=== PATIENT | female | born 1975 | race Caucasian/White ===

== ENCOUNTER 2024-10-30 13:12 | Inpatient (IN) | payer MEDICARE, OTHER ==
[~2024-10-30] VITALS: Ht 180.3 cm; Wt 59.0 kg
--- NOTE | 2024-10-30 14:37 | DVH ---
EXAM: XY L ANKLE 3 VIEW CLINICAL INDICATION: ankle pain TECHNIQUE: XY L ANKLE 3 VIEW Comparison: None FINDINGS/IMPRESSION: Chronic deformity involving the distal tibia and fibula. Chronic avulsion fracture involving the medi al malleolus. Postsurgical changes involving the calcaneus. No acute fracture.
--- NOTE | 2024-10-30 14:44 | DVH ---
EXAM: XY L HIP COMPLETE XRAY CLINICAL HISTORY: PAIN COMPARISON: None TECHNIQUE: XY L HIP COMPLETE XRAY Findings/Impression: 2 views of the left hip with frontal view of the pelvis. There is no definite evidence of an acute fracture, dislocation, blastic, or lytic lesions. Recommend CT for further evaluation if there is high clinical suspicion for an acute fracture. Spinal and pelvic fixation hardware. No joint effusion or superficial soft tissue abnormalities.
--- NOTE | 2024-10-30 15:25 | DVH ---
CLINICAL INFORMATION: 49 years old, Female; possible fracture status post fall injury. TECHNIQUE: Axial CT images of the left hip were obtained without IV contrast. Coronal and sagittal re formatted images were obtained, reviewed, and stored. All CT scans at this medical facility are pe rformed using dose modulation techniques as appropriate to a performed exam including the following: Automated exposure control was utilized; adjustment of the MA and/or KV according to patient size; an d use of iterative reconstruction technique. CTDIvol = 8.5, 0.41, 0.41, 0.07 mGy DLP = 296.29 mGy-cm COMPARISON: Radiographs dated 10/30/2024. FINDINGS: There is an acute appearing fracture of the left inferior pubic ramus without significant d isplacement. No other acute fracture visualized. There is adjacent soft tissue swelling. Moderate to severe arthritic changes are seen in the left hip with joint space narrowing, subchondral sclerosis, subchondral cystic change, and marginal osteophytes. Prominent left inguinal lymph node measures up to 2.0 x 1.3 cm, may be reactive. Moderate to marked fatty atrophy of the left gluteus minimus muscle . Moderately distended bladder incidentally noted and partially visualized. IMPRESSION: 1. Acute fracture of the left inferior pubic ramus. 2. Moderate to severe arthritic changes in the left hip. 3. Prominent left inguinal lymph node, may be reactive. Correlate with clinical findings. If the ly mph node is clinically suspicious, biopsy could be obtained.
--- NOTE | 2024-10-30 16:57 | ED.PDOC ---
Musculoskeletal HPI Comments Pleasant 49-year-old female with a history of chronic back pain and a history of chronic left elbow injuries that presents with a chief complaint of left-sided hip pain after a mechanical fall that occurred two weeks ago in [place] Reports she twisted her ankle in a hotel and landed on her left hip Able to ambulate with pain Pain rated 10/10 Denies LOC Chief Complaint: Lower Extremity Time Seen by MD: 14:18 Reviewed Notes: Nurses Notes, Medications, Allergies Information Source: Patient Mode of Arrival: Wheelchair Family History Family History: Reviewed,noncontributory to illness All Other Systems: Reviewed and Negative (Per HPI) Physical Exam General Appearance: No Apparent Distress, Normal HEENT: Normal ENT Inspection, Pharynx Normal, TMs Normal Neck: Full Range of Motion, Non-Tender, Normal, Normal Inspection Respiratory: Chest Non-Tender, Lungs Clear, No Accessory Muscle Use, No Respiratory Distress, Normal Breath Sounds Cardiovascular: No Murmur, No Gallop, Regular Rate/Rhythm Breast Exam: Deferred Gastrointestinal: No Organomegaly, Non Tender, No Pulsatile Mass, Normal Bowel Sounds, Soft Genitalia: Deferred Pelvic: Deferred Rectal: Deferred Extremities: No calf tenderness, Normal capillary refill, Normal inspection, Normal range of motion, Non-tender, No pedal edema Musculoskeletal : Location: Left Extremity Location: Ankle (Malleolus the swelling. Tender to palpation. Pain with flexion-extension. No ecchymosis no open wounds. Dorsalis pedis 2+. Distal neuro sensation intact), Hip (No gross abnormality of the hip. Localized tenderness to palpation to the lateral iliac crest. Pain with internal external rotation. No shortening of the leg) Apperance: Normal Neurologic: Alert, creative producer II-XII nml as Tested, No Motor Deficits, Normal Affect, Normal Mood, No Sensory Deficits Cerebellar Function: Normal Reflexes: Normal Skin: Dry, Normal Color, Warm Lymphatic: No Adenopathy Was a procedure done? Was a procedure done?: No Differential Diagnosis EXT Differential Diagnosis: Fracture, Sprain, Dislocation X-Ray, Labs, Meds, VS Vital Signs Date Time Temp Pulse Resp B/P (MAP) Pulse Ox O2 Delivery O2 Flow Rate FiO2 10/30/24 14:18 99.2 64 14 129/102 (592) 96 PATIENT: ESTELA FLYNNRUBENCCT: [id number]: [id number] : 1975 LOC: ER ROOM / BED: / AGE / SEX: 49 / F ADM STATUS: REG ER SERVICE 1453 ORDERING PHYSICIAN: SONU HESS NP PROCEDURE(s): LHPCT - CT L HIP WITH OUT CONTRAST REASON: possible fracture s/p fall ORDER NUMBER(s): [id number], ACCESSION NUMBER(s): [id number] CLINICAL INFORMATION: 49 years old, Female; possible fracture status post fall injury. TECHNIQUE: Axial CT images of the left hip were obtained without IV contrast. Coronal and sagittal reformatted images were obtained, reviewed, and stored. All CT scans at this medical facility are performed using dose modulation techniques as appropriate to a performed exam including the following: Automated exposure control was utilized; adjustment of the MA and/or KV according to patient size; and use of iterative reconstruction technique. CTDIvol = 8.5, 0.41, 0.41, 0.07 mGy DLP = 296.29 mGy-cm COMPARISON: Radiographs dated 10/30/2024. FINDINGS: There is an acute appearing fracture of the left inferior pubic ramus without significant displacement. No other acute fracture visualized. There is adjacent soft tissue swelling. Moderate to severe arthritic changes are seen in the left hip with joint space narrowing, subchondral sclerosis, subchondral cystic change, and marginal osteophytes. Prominent left inguinal lymph node measures up to 2.0 x 1.3 cm, may be reactive. Moderate to marked fatty atrophy of the left gluteus minimus muscle. Moderately distended bladder incidentally noted and partially visualized. IMPRESSION: 1. Acute fracture of the left inferior pubic ramus. 2. Moderate to severe arthritic changes in the left hip. 3. Prominent left inguinal lymph node, may be reactive. Correlate with clinical findings. If the lymph node is clinically suspicious, biopsy could be obtained. ATED BY: CRISTIANO APODACA DO DICTATED DATE/TIME: 10/30/24 1522 SIGNED BY: CRISTIANO APODACA DO SIGNED DATE/TIME: 10/30/24 152 CC: X-Ray, Labs, Meds, VS Comment Hip Fracture MDM VSS. Exam as above. Labs pending Imaging 1. Acute fracture of the left inferior pubic ramus. 2. Moderate to severe arthritic changes in the left hip. 3. Prominent left inguinal lymph node, may be reactive. Correlate with clinical findings. If the lymph node is clinically suspicious, biopsy could be obtained. Findings: Closed Hip Fracture without dislocation Consult: Orthopedic The patient's workup reveals that the patient needs further treatment and pain control for the above medical conditions. Patient verbalized understanding of the above and is awaiting further evaluation by the admitting service. Case discussed with medical editor of the day for admission and ED evaluation. Time of 1ST Reevaluation: 17:10 Reevaluation 1ST: Improved Patient Education/Counseling: Diagnosis, Treatment Family Education/Counseling: Diagnosis, Treatment Departure 1 Departure Time of Disposition: 17:11 Impression: Primary Impression: Fracture of left inferior pubic ramus Qualified Codes: S32.592A - Other specified fracture of left pubis, initial encounter for closed fracture Additional Impression: Left ankle pain Qualified Codes: M25.572 - Pain in left ankle and joints of left foot Disposition: 09 ADMITTED INPATIENT Condition: Fair Critical Care Note Critical Care Time?: No Stability Stability form required: No Heart Score Heart Score: Heart Score Response (Comments) Value History N/A 0 EKG N/A 0 Age N/A 0 Risk Factors N/A 0 Troponin N/A 0 Total 0 SONU HESS NP Oct 30, 2024 16:57
[2024-10-30] MEDS: SODIUM CHLORIDE 0.9% 1,000 ML IV ONE (17:47)
[2024-10-30] MEDS: HYDROcodone-ACET 10/325MG TAB PO ONE (17:56)
[2024-10-30 18:18] LABS: Basophils # (auto) 0 10 ^3/uL (0-0.2); Basophils % (auto) 0.3 % (0.0-2.0); Eosinophils # (auto) 0 10 ^3/uL (0-0.8); Eosinophils % (auto) 0.5 % (0.0-7.0); Hematocrit 44.9 % (36.0-46.0); Hemoglobin 15.1 g/dL (12.2-16.2); Lymphocytes # (auto) 1.9 10 ^3/uL (0.4-5.4); Lymphocytes % (auto) 32.4 % (10.0-50.0); Mean Corpuscular Hemoglobin 30.7 pg (28.0-32.0); Mean Corpuscular Hgb Conc. 33.5 g/dL (32.0-36.0); Mean Corpuscular Volume 91.5 fL (80.0-100.0); Monocytes # (auto) 0.2 10 ^3/uL (0-1.3); Neutrophils # (auto) 3.6 10 ^3/uL (1.6-8.6); Neutrophils % (auto) 62.8 % (37.0-80.0); Nucleated Red Blood Cells % 0.2 %; Platelet Count (auto) 173 10^3/uL (140-450); Red Blood Cells 4.91 10^6/uL (4.0-5.20); Red Cell Distribution Width 14.1 % (11.8-14.3); White Blood Cell 5.8 10^3/uL (4.4-10.8)
[2024-10-30 18:34] LABS: Alanine Aminotransferase 15 U/L (7-40); Anion Gap 6 (5-15); BUN/Creatinine Ratio 9.9 (10.0-20.0); Carbon Dioxide 29 mmol/L (20-31); Chloride 106 mmol/L (98-107); Glucose 86 mg/dL (74-106); Sodium 141 mmol/L (136-145)
[2024-10-30 18:35] LABS: Total Protein 7.5 g/dL (5.7-8.2)
[2024-10-30 18:46] LABS: Albumin 5.2 g/dL (3.2-4.8); Alkaline Phosphatase 172 U/L (46-116); Aspartate Aminotransferase 9 U/L (13-40); Bilirubin, Total 0.3 mg/dL (0.2-1.0); Blood Urea Nitrogen 7 mg/dL (9-23); Calcium 10.5 mg/dL (8.7-10.4)
[2024-10-30 22:25] VITALS: BP 118/87; PULSE 88; RESP 16; TEMP 98.3; O2SAT 99
[2024-10-30] MEDS: MORPHINE SULFATE INJ 2 MG/ml SYRG IM ONE (22:25)
[2024-10-30] MEDS: ONDANSETRON ODT 4 MG TAB PO ONE (22:25)
--- NOTE | 2024-10-30 22:52 | DVHHPRES ---
History of Present Illness Resident Creating Document: GERARD BRUSH RESIDENT History of Present Illness 49-year-old female with past medical history of lupus, chronic pain, endometriosis, right leg amputation, multiple orthopedic injuries after sustaining a fall from a 5 story building, who came in due to left leg pain s/p mechanical fall. Per patient, on 10/19/2024 while in [place] she tripped, twisted her left leg and fell. Shortly after she started noticing swelling in her left lower extremity along with pain, swelling resolved but pain worsened over the next few days. Patient is able to stand and move however, mobility is limited by left hip pain which is present on activity as well as at rest, 10/10 in intensity and constant. Left hip x-ray showed no acute fracture. CT scan of the left hip showed acute fracture of the left inferior pubic ramus. On review of systems patient is complaining of fatigue, fever, chills. Orthopedic was consulted. Past Medical History lupus, chronic pain, endometriosis, right leg amputation, multiple orthopedic injuries after sustaining a fall from a 5 story building in 1999 Past Surgical History Spinal reconstruction surgery, multiple bilateral lower extremity surgeries, right above the knee amputation, left oophorectomy Past Social History Smokin pack per day for the last 25 years Alcohol: Denies Drugs: Uses marijuana occasionally Review of Systems Constitutional: Yes: Fever, Chills, Malaise; No: Sweats, Weakness, Other Eyes: No: Pain, Vision change, Conjunctivae inflammation, Eyelid inflammation, Other, Redness ENT: No: Ear pain, Ear discharge, Nose pain, Nose discharge, Nose congestion, Mouth pain, Mouth swelling, Throat pain, Throat swelling, Other Respiratory: No: Cough, Dry, Shortness of breath, SOB with excertion, Wheezing, Hemoptysis, Pleuritic Pain, Sputum, Wheezing, Other Cardiovascular: No: Chest Pain, Palpitations, Orthopnea, Paroxysmal Noc. Dyspnea, Edema, Lt Headedness, Other Gastrointestinal: No: Nausea, Vomiting, Abdominal Pain, Diarrhea, Constipation, Melena, Hematochezia, Other Genitourinary: No Dysuria, No Frequency, No Incontinence, No Hematuria, No Retention, No Other Musculoskeletal: leg pain; No: other, neck pain, shoulder pain, arm pain, back pain, hand pain, foot pain Skin: No: Rash, Lesions, Jaundice, Bruising, Other Neurological: No: Weakness, Numbness, Incoordination, Change in speech, Confusion, Seizures, Other Allergies: Coded Allergies: Topiramate (Verified Allergy, Unknown, 10/30/24) Exam Vital Signs Vital Signs Date Time Temp Pulse Resp B/P (MAP) Pulse Ox O2 Delivery O2 Flow Rate FiO2 10/30/24 22:25 98.3 88 16 118/87 (97) 99 98.3 General Appearance: Alert, Oriented X3, Cooperative, mild distress HEENT: Atraumatic, PERRLA, EOMI Respiratory: Clear to auscultation, Normal air movement Cardiovascular: Normal S1, Normal S2 Abdominal: Normal bowel sounds, Soft, No tenderness Extremities: No clubbing, No cyanosis, No edema, Normal pulses Skin: No significant lesion Neuro: Normal speech, Sensation intact Psych/Mental Status: Mental status NL, Mood NL Labs/Xrays Labs Test 10/30/24 17:33 Range/Units White Blood Count 5.8 4.4-10.8 10^3/uL Red Blood Count 4.91 4.0-5.20 10^6/uL Hemoglobin 15.1 12.2-16.2 g/dL Hematocrit 44.9 36.0-46.0 % Mean Corpuscular Volume 91.5 80.0-100.0 fL Mean Corpuscular Hemoglobin 30.7 28.0-32.0 pg Mean Corpuscular Hemoglobin Concent 33.5 32.0-36.0 g/dL Red Cell Distribution Width 14.1 11.8-14.3 % Platelet Count 173 140-450 10^3/uL Mean Platelet Volume 10.7 6.9-10.8 fL Neutrophils (%) (Auto) 62.8 37.0-80.0 % Lymphocytes (%) (Auto) 32.4 10.0-50.0 % Monocytes (%) (Auto) 4.0 0.0-12.0 % Eosinophils (%) (Auto) 0.5 0.0-7.0 % Basophils (%) (Auto) 0.3 0.0-2.0 % Neutrophils # (Auto) 3.6 1.6-8.6 10 ^3/uL Lymphocytes # (Auto) 1.9 0.4-5.4 10 ^3/uL Monocytes # (Auto) 0.2 0-1.3 10 ^3/uL Eosinophils # (Auto) 0 0-0.8 10 ^3/uL Basophils # (Auto) 0 0-0.2 10 ^3/uL Nucleated Red Blood Cells 0.2 % Sodium Level 141 136-145 mmol/L Potassium Level 4.0 3.5-5.1 mmol/L Chloride Level 106 98-107 mmol/L Carbon Dioxide Level 29 20-31 mmol/L Anion Gap 6 5-15 Blood Urea Nitrogen 7 L 9-23 mg/dL Creatinine 0.71 0.550-1.02 mg/dL Glomerular Filtration Rate Calc 103 >90 mL/min BUN/Creatinine Ratio 9.9 L 10.0-20.0 Serum Glucose 86 74-106 mg/dL Calcium Level 10.5 H 8.7-10.4 mg/dL Total Bilirubin 0.3 0.2-1.0 mg/dL Aspartate Amino Transferase (AST) 9 L 13-40 U/L Alanine Aminotransferase (ALT) 15 7-40 U/L Alkaline Phosphatase 172 H 46-116 U/L Total Protein 7.5 5.7-8.2 g/dL Albumin 5.2 H 3.2-4.8 g/dL Assessment/Plan Assessment/Plan S/p mechanical fall Left inferior pubic ramus fracture Chronic pain syndrome - left hip x-ray: There is no definite evidence of an acute fracture, dislocation, blastic, or lytic lesions. Recommend CT for further evaluation if there is high clinical suspicion for an acute fracture. Spinal and pelvic fixation hardware. No joint effusion or superficial soft tissue abnormalities. - left ankle x-ray: Chronic deformity involving the distal tibia and fibula. Chronic avulsion fracture involving the medial malleolus. Postsurgical changes involving the calcaneus. No acute fracture. - left hip CT scan: Acute fracture of the left inferior pubic ramus. Moderate to severe arthritic changes in the left hip. Prominent left inguinal lymph node, m ay be reactive. Correlate with clinical findings. If the lymph node is clinically suspicious, biopsy could be obtained. - PT PTT, CXR, EKG - consulted Orthopedic - NPO after midnight - resumed home medication tramadol and gabapentin - IV morphine as needed for pain - IV Zofran History of fall in 1999 with multiple corrective surgeries History of lupus Endometriosis - monitor DVT prophylaxis: SCDs Goals of care: Full code, discussed for >16 minutes on 10/31/2024 Plan discussed with patient Plan discussed with Dr. Bosch Plan discussed with: Patient, Other (RN) My Orders Orders - GERARD BRUSH RESIDENT Procedure Category Date Status Time Admit ADMIT 10/30/24 Verified 22:51 Code Status CODE 10/30/24 Verified 22:51 Vital Signs [facility] 10/30/24 Verified 22:51 Review Orders With [facility] 10/30/24 Verified Adm. 22:51 Notify Md Of Changes [facility] 10/30/24 Verified From Base 22:51 Advance Directive [facility] 10/30/24 Verified 22:51 Patient Condition ORDERS 10/30/24 Verified 22:51 Allergies [facility] 10/30/24 Verified 22:51 Notify Md Of Changes [facility] 10/30/24 Verified From Base 22:51 Date of Service: Oct 30, 2024 Billing Provider: MARIANO LUTZ MD Common Visit Codes: [id number] INP/OBS CARE (HIGH) GERARD BRUSH Oct 30, 2024 22:52 MARIANO LUTZ MD Oct 31, 2024 23:15
[2024-10-30] MEDS ORDERED: ONDANSETRON HCL 4 MG/2 ML VIAL IV PRN (23:15)
[2024-10-30] MEDS ORDERED: MORPHINE SULFATE INJ 2 MG/ml SYRG IV PRN (23:15)
[2024-10-30] MEDS ORDERED: traMADol HCL 50 MG TAB PO SCH (23:30)
--- NOTE | 2024-10-31 03:58 | DVHDSRES ---
Discharge Summary Date of Admission Resident Creating Document: GERARD BRUSH RESIDENT Oct 30, 2024 at 22:51 Date of Discharge: Oct 31, 2024 Admitting Diagnosis Acute intractable left hip pain s/p mechanical fall Labs/Diagnostic Data: Laboratory Results Test 10/30/24 17:33 White Blood Count 5.8 10^3/uL (4.4-10.8) Red Blood Count 4.91 10^6/uL (4.0-5.20) Hemoglobin 15.1 g/dL (12.2-16.2) Hematocrit 44.9 % (36.0-46.0) Mean Corpuscular Volume 91.5 fL (80.0-100.0) Mean Corpuscular Hemoglobin 30.7 pg (28.0-32.0) Mean Corpuscular Hemoglobin Concent 33.5 g/dL (32.0-36.0) Red Cell Distribution Width 14.1 % (11.8-14.3) Platelet Count 173 10^3/uL (140-450) Mean Platelet Volume 10.7 fL (6.9-10.8) Neutrophils (%) (Auto) 62.8 % (37.0-80.0) Lymphocytes (%) (Auto) 32.4 % (10.0-50.0) Monocytes (%) (Auto) 4.0 % (0.0-12.0) Eosinophils (%) (Auto) 0.5 % (0.0-7.0) Basophils (%) (Auto) 0.3 % (0.0-2.0) Neutrophils # (Auto) 3.6 10 ^3/uL (1.6-8.6) Lymphocytes # (Auto) 1.9 10 ^3/uL (0.4-5.4) Monocytes # (Auto) 0.2 10 ^3/uL (0-1.3) Eosinophils # (Auto) 0 10 ^3/uL (0-0.8) Basophils # (Auto) 0 10 ^3/uL (0-0.2) Nucleated Red Blood Cells 0.2 % Sodium Level 141 mmol/L (136-145) Potassium Level 4.0 mmol/L (3.5-5.1) Chloride Level 106 mmol/L (98-107) Carbon Dioxide Level 29 mmol/L (20-31) Anion Gap 6 (5-15) Blood Urea Nitrogen 7 mg/dL (9-23) Creatinine 0.71 mg/dL (0.550-1.02) Glomerular Filtration Rate Calc 103 mL/min (>90) BUN/Creatinine Ratio 9.9 (10.0-20.0) Serum Glucose 86 mg/dL (74-106) Calcium Level 10.5 mg/dL (8.7-10.4) Total Bilirubin 0.3 mg/dL (0.2-1.0) Aspartate Amino Transferase (AST) 9 U/L (13-40) Alanine Aminotransferase (ALT) 15 U/L (7-40) Alkaline Phosphatase 172 U/L (46-116) Total Protein 7.5 g/dL (5.7-8.2) Albumin 5.2 g/dL (3.2-4.8) Other Laboratory Tests 10/30/24 17:33 Brief Hx & Hospital Course: 49-year-old female with past medical history of lupus, chronic pain, endometriosis, right leg amputation, multiple orthopedic injuries after sustaining a fall from a 5 story building, who came in due to left leg pain s/p mechanical fall. Per patient, on 10/19/2024 while in [place] she tripped, twisted her left leg and fell. Shortly after she started noticing swelling in her left lower extremity along with pain, swelling resolved but pain worsened over the next few days. Patient is able to stand and move however, mobility is limited by left hip pain which is present on activity as well as at rest, 10/10 in intensity and constant. Left hip x-ray showed no acute fracture. CT scan of the left hip showed acute fracture of the left inferior pubic ramus. On review of systems patient is complaining of fatigue, fever, chills. Orthopedic was consulted. However, patient eloped before further management and treatment could be completed. Consults/Reason for consult Orthopedic: Left inferior pubic ramus fracture Operations or Procedures EXAM: XY L ANKLE 3 VIEW CLINICAL INDICATION: ankle pain TECHNIQUE: XY L ANKLE 3 VIEW Comparison: None FINDINGS/IMPRESSION: Chronic deformity involving the distal tibia and fibula. Chronic avulsion fracture involving the medial malleolus. Postsurgical changes involving the calcaneus. No acute fracture. : XY L HIP COMPLETE XRAY CLINICAL HISTORY: PAIN COMPARISON: None TECHNIQUE: XY L HIP COMPLETE XRAY Findings/Impression: 2 views of the left hip with frontal view of the pelvis. There is no definite evidence of an acute fracture, dislocation, blastic, or lytic lesions. Recommend CT for further evaluation if there is high clinical suspicion for an acute fracture. Spinal and pelvic fixation hardware. No joint effusion or superficial soft tissue abnormalities. CLINICAL INFORMATION: 49 years old, Female; possible fracture status post fall injury. TECHNIQUE: Axial CT images of the left hip were obtained without IV contrast. Coronal and sagittal reformatted images were obtained, reviewed, and stored. All CT scans at this medical facility are performed using dose modulation techniques as appropriate to a performed exam including the following: Automated exposure control was utilized; adjustment of the MA and/or KV according to patient size; and use of iterative reconstruction technique. CTDIvol = 8.5, 0.41, 0.41, 0.07 mGy DLP = 296.29 mGy-cm COMPARISON: Radiographs dated 10/30/2024. FINDINGS: There is an acute appearing fracture of the left inferior pubic ramus without significant displacement. No other acute fracture visualized. There is adjacent soft tissue swelling. Moderate to severe arthritic changes are seen in the left hip with joint space narrowing, subchondral sclerosis, subchondral cystic change, and marginal osteophytes. Prominent left inguinal lymph node measures up to 2.0 x 1.3 cm, may be reactive. Moderate to marked fatty atrophy of the left gluteus minimus muscle. Moderately distended bladder incidentally noted and partially visualized. IMPRESSION: 1. Acute fracture of the left inferior pubic ramus. 2. Moderate to severe arthritic changes in the left hip. 3. Prominent left inguinal lymph node, may be reactive. Correlate with clinical findings. If the lymph node is clinically suspicious, biopsy could be obtained. Condition at Discharge: Undetermined Final Diagnosis/Problems List Left inferior pubic ramus fracture Chronic pain syndrome S/p mechanical fall History of fall in 1999 when multiple corrective surgeries History of lupus History of endometriosis History of right vuqaf-may-vymh amputation Discharge Disposition: AMA Discharge Statement: "Patient was advised to return to the ER or call 911 if any headaches, dizziness, shortness of breath, chest pain, abdominal pain, bleeding, fevers, or worsening of medical condition. Patient was counseled about treatment plan, medications, possible side effects, patientverbalized understanding. All questions were answered to the best of my ability. This discharge took greater then 30 minutes in planning, reviewing documentation, counseling the patient, and discussing with other team members." ASSESSMENT ASSESSMENT Assessment GERARD BRUSH RESIDENT Oct 31, 2024 03:58
--- NOTE | 2024-10-31 04:42 | DVH ---
CHEST RADIOGRAPH Indication: Cough Technique: Single frontal view of the chest was obtained Comparison: None FINDINGS: Lines and Tubes: None Lungs: Bilateral airspace disease. Pleura: No effusion. No pneumothorax. Cardiomediastinal contours: Unremarkable Bones: No acute osseous abnormality. IMPRESSION: 1. Bilateral airspace disease which may represent pneumonia in the appropriate clinical setting.
[2024-10-31] MEDS ORDERED: GABAPENTIN 300 MG CAP PO SCH (06:00)
== END 2024-10-31 03:24 | disposition left against medical advice (07) | DRG 536 ==
LOC: ER 13:12 → OVERFLOW 22:51
DX: S32.592A Other specified fracture of left pubis, initial encounter for closed fracture (principal); G89.4 Chronic pain syndrome; Z89.611 Acquired absence of right leg above knee; W18.39XA Other fall on same level, initial encounter; Y93.89 Activity, other specified; Y92.89 Other specified places as the place of occurrence of the external cause; Y99.8 Other external cause status
CPT/HCPCS: 36415; 71045; 73502; 73610; 73700; 80053; 85025; G0378; Q0162

== ENCOUNTER 2024-10-31 11:42 | Emergency (ER) | payer MEDICARE, MEDICAID ==
[~2024-10-31] VITALS: Ht 180.3 cm; Wt 65.9 kg
[2024-10-31 14:46] VITALS: BP 129/87; PULSE 108; RESP 20; TEMP 98.5; O2SAT 97
--- NOTE | 2024-10-31 15:48 | ED.PDOC ---
History of Present Illness HPI Comments 49-year-old female came to the ER complaining of left hip pain along with a left ankle deformity of the past week. Was seen in this ER yesterday for the same symptom but left against medical advice. She comes back today wanting pain medication and. Has a prosthetic right lower extremity. Denies any other s ymptoms. Chief Complaint: Lower Extremity Time Seen by MD: 11:46 Reviewed Notes: Nurses Notes, Medications, Allergies Allergies: Coded Allergies: Topiramate (Verified Allergy, Unknown, 10/30/24) Information Source: Patient Mode of Arrival: Ambulatory Severity: Mild Timing: Days Duration: Since onset Past Medical History PAST MEDICAL HISTORY: Denies Surgical History: Denies all surgeries RADIOLOGY NURSE History: No Pertinent RADIOLOGY NURSE History Family History Family History: Reviewed,noncontributory to illness Social History Smoker: Non-Smoker Alcohol: Denies ETOH Use Drugs: Denies Drug Use Constitutional: denies: chills, diaphoresis, fatigue, fever, malaise, sweats, weakness, others EENTM: denies: blurred vision, double vision, ear bleeding, ear discharge, ear drainage, ear pain, ear ringing, eye pain, eye redness, hearing loss, mouth pain, mouth swelling, nasal discharge, nose bleeding, nose congestion, nose pain, photophobia, tearing, throat pain, throat swelling, voice changes, others Respiratory: denies: cough, hemoptysis, orthopnea, SOB at rest, shortness of breath, SOB with excertion, stridor, wheezing, others Cardiovascular: denies: chest pain, dizzy spells, diaphoresis, Dyspnea on exertion, edema, irregular heart beat, left arm pain, lightheadedness, palpitations, PND, syncope, others Gastrointestinal: denies: abdomen distended, abdominal pain, blood streaked bowels, constipated, diarrhea, dysphagia, difficulty swallowing, hematemesis, melena, nausea, poor appetite, poor fluid intake, rectal bleeding, rectal pain, vomiting, others Genitourinary: denies: abnormal vagina bleeding, burning, dyspareunia, dysuria, flank pain, frequency, hematuria, incontinence, pain, , vagina discharge, urgency, others Neurological: denies: dizziness, fainting, headache, left sided numbness, left sided weakness, numbness, paresthesia, pre-existing deficit, right sided numbne ss, right sided weakness, seizure, speech problems, tingling, tremors, weakness, others Musculoskeletal: reports: joint pain (Left hip); denies: back pain, gout, joint swelling, muscle pain, muscle stiffness, neck pain, others Integumetry: denies: bruises, change in color, change in hair/nails, dryness, laceration, lesions, lumps, rash, wounds, others Allergic/Immunocompromised: denies: Difficulty Healing, Frequent Infections, Hives, Itching, others Hematologic/Lymphatic: denies: anemia, blood clots, easy bleeding, easy bruis ing, swollen glands, others Endocrine: denies: excessive hunger, excessive sweating, excessive thirst, exc essive urination, flushing, intolerance to cold, intolerance to heat, unexplained weight gain, unexplained weight loss, others Psychiatric: denies: anxiety, bipolar disorder, depression, hopeless, panic disorder, schizophrenia, sleepless, suicidal, others Physical Exam General Appearance: Moderate Distress HEENT: Normal ENT Inspection, Pharynx Normal, TMs Normal Neck: Full Range of Motion, Non-Tender, Normal, Normal Inspection Respiratory: Chest Non-Tender, Lungs Clear, No Accessory Muscle Use, No Respiratory Distress, Normal Breath Sounds Cardiovascular: No Edema, No JVD, No Murmur, No Gallop, Normal Peripheral Puls es, Tachycardia Breast Exam: Deferred Gastrointestinal: No Organomegaly, Non Tender, No Pulsatile Mass, Normal Bowel Sounds, Soft Genitalia: Deferred Pelvic: Deferred Rectal: Deferred Extremities: No calf tenderness, Normal capillary refill, No pedal edema, Other (Left ankle deformity right prosthesis) Musculoskeletal : Apperance: Normal Neurologic: Alert, cobol developer II-XII nml as Tested, No Motor Deficits, Normal Affect, Normal Mood, No Sensory Deficits Cerebellar Function: NOT DONE Reflexes: NOT DONE Skin: Dry, Normal Color, Warm Peripheral Pulses: 3+ Radial (R), 3+ Radial (L) Lymphatic: No Adenopathy Was a procedure done? Was a procedure done?: No Differential Dx Considerations may include: Hip fracture Electrolyte imbalance X-Ray, Labs, Meds, VS Vital Signs Date Time Temp Pulse Resp B/P (MAP) Pulse Ox O2 Delivery O2 Flow Rate FiO2 10/31/24 14:46 108 20 97 Room Air 10/31/24 14:46 98.5 108 20 129/87 (101) 97 98.5 10/31/24 12:37 98.5 108 20 129/87 (101) 97 Patient alert. Complaining of 48 pain. Was seen here yesterday for similar symptom. Vitals stable. Answering all questions. She will need orthopedic. Explained to the patient. Continue cardiac monitoring. Time of 1ST Reevaluation: 15:47 Reevaluation 1ST: Unchanged Patient Education/Counseling: Diagnosis, Treatment, Prognosis Family Education/Counseling: Need For Follow Up Departure 1 Departure Time of Disposition: 15:48 Impression: Primary Impression: Fracture of left inferior pubic ramus Qualified Codes: S32.592A - Other specified fracture of left pubis, initial encounter for closed fracture Additional Impression: Left ankle pain Qualified Codes: M25.572 - Pain in left ankle and joints of left foot Disposition: ADMITTED INPATIENT Admit to: Med Surg Condition: Guarded Critical Care Note Critical Care Time?: No Stability Stability form required: No Heart Score Heart Score: Heart Score Response (Comments) Value History N/A 0 EKG N/A 0 Age N/A 0 Risk Factors N/A 0 Troponin N/A 0 Total 0 GERMAN SHAH MD Oct 31, 2024 15:48
== END 2024-10-31 15:49 | disposition left against medical advice (07) ==
LOC: ER 11:54
DX: S32.592A Other specified fracture of left pubis, initial encounter for closed fracture (principal); M25.572 Pain in left ankle and joints of left foot; Z88.8 Allergy status to other drugs, medicaments and biological substances; X58.XXXA Exposure to other specified factors, initial encounter; Y93.89 Activity, other specified; Y92.89 Other specified places as the place of occurrence of the external cause; Y99.8 Other external cause status